=== PATIENT | female | born 2000 | race Caucasian/White ===

== ENCOUNTER 2022-06-23 03:51 | Emergency (ER) | payer OTHER ==
[2022-06-23] MEDS ORDERED: KETOROLAC 30 MG/ML VIAL IVP ONE (06:00)
[2022-06-23] MEDS ORDERED: PROMETHAZINE INJ 25 MG/ML (PHENERGAN) AMP IVP ONE (06:00)
[2022-06-23] MEDS ORDERED: LACTATED RINGERS 1,000 ML IV ONE (06:00)
[2022-06-23] MEDS ORDERED: ORPHENADRINE 60 MG/2 ML (NORFLEX) AMP (ED ONLY) IV ONE (06:00)
[2022-06-23 06:22] LABS: BASOPHILS % (AUTO) 1 % (0-10); EOSINOPHILS % (AUTO) 1 % (0-10); HEMATOCRIT 41 % (35-52); HEMOGLOBIN 13.7 g/dL (11.5-16.0); LYMPHOCYTES # (AUTO) 1.4 10^3/uL (1.0-4.0); LYMPHOCYTES % (AUTO) 32 % (12-44); MEAN CORPUSCULAR HEMOGLOBIN 30 pg (25-34); MEAN CORPUSCULAR HGB CONC 34 g/dL (32-36); MEAN CORPUSCULAR VOLUME 89 fL (80-99); MEAN PLATELET VOLUME 9.9 fL (9.0-12.2); MONOCYTES # (AUTO) 0.7 10^3/uL (0.0-1.0); MONOCYTES % (AUTO) 15 % (0-12); NEUTROPHILS # (AUTO) 2.3 10^3/uL (1.8-7.8); NEUTROPHILS % (AUTO) 51 % (42-75); PLATELET COUNT 237 10^3/uL (130-400); WHITE BLOOD COUNT 4.4 10^3/uL (4.3-11.0)
[2022-06-23 06:33] LABS: POTASSIUM 4.1 MMOL/L (3.6-5.0)
[2022-06-23 06:35] LABS: CALCIUM 9.3 MG/DL (8.5-10.1)
[2022-06-23 06:39] LABS: CREATININE SERUM 0.77 MG/DL (0.60-1.30)
[2022-06-23 06:41] LABS: MAGNESIUM 1.7 MG/DL (1.6-2.4)
[2022-06-23] MEDS ORDERED: methylPREDNISolone 125 MG (Solu-MEDROL) VIAL IVP ONE (07:00)
[2022-06-23 07:02] LABS: ERYTHROCYTE SEDIMENTATION RATE 8 MM/HR (0-20)
[2022-06-23] MEDS ORDERED: CYCL10TA25 PO (07:02)
--- NOTE | 2022-06-23 07:03 | ED Headache ---
General Chief Complaint: Head/Cervical Problems Stated Complaint: ROSARIO Nursing Triage Note: pt presents with c/o h/a x4days. reports taking 600mg ibuprofen for the pain without relief. reports last dose was 0300. denies n/v/d. reports hitting her head one month ago, no other injuries. Source: patient Exam Limitations: no limitations History of Present Illness Date Seen by Provider: Jun 23, 2022 Time Seen by Provider: 05:45 Initial Comments This 21-year-old young lady presents to the emergency room with headache for the past 4 days. She denies history of migraine headaches. She reports head injury about a month ago for which she was evaluated with a CT scan in [place]. She took COVID-19 test x2 that were negative. She last took ibuprofen around 3 AM. Her headache was severe when she woke at that time this morning. She was nauseated yesterday but denies any nausea now. She has had some diarrhea. She denies fever. She has not had any tick bites that she is aware of. She took one half hydroxyzine and some NyQuil 2 nights ago and felt confused and dizzy after that. She had COVID tests on Monday and Monday at the hospital and a third test from urgent care is currently pending. The first 2 tests were negative. She has had some hot flashes. Her primary care provider is in [facility]. She is on oral control. Pain starts in her neck and radiates up over her scalp. Allergies and Home Medications Allergies Coded Allergies: mupirocin (Verified Allergy, Unknown, 06/23/22) Patient Home Medication List Home Medication List Reviewed: Yes Cyclobenzaprine HCl (Cyclobenzaprine HCl) 10 Mg Tablet, 10 MG PO Q8H PRN for SPASMS Prescribed by: ULI KIM on 06/23/22 0702 Review of Systems Review of Systems Constitutional: no symptoms reported Eyes: No Symptoms Reported Ears, Nose, Mouth, Throat: no symptoms reported Respiratory: no symptoms reported Cardiovascular: no symptoms reported Gastrointestinal: see HPI Genitourinary: no symptoms reported : No Musculoskeletal: no symptoms reported Skin: no symptoms reported Psychiatric/Neurological: See HPI Past Ndcsegk-Tgwegy-Yacynp Hx Patient Social History Tobacco Use?: No Use of E-Cig and/or Vaping dev: Yes E-Cig or Vaping type used: Nicotine Substance use?: No Alcohol Use?: Yes Alcohol Frequency: Once in a while Pt feels they are or have been: No Immunizations Up To Date Influenza Vaccine Up-to-Date: No; Not Current First/Initial COVID19 Vaccinat: unknown date Second COVID19 Vaccination Jaziel: unknown date 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 oz. kg; BMI Method: General Appearance: WD/WN, mild distress HEENT: PERRL/EOMI, normal ENT inspection, TMs normal, pharynx normal Neck: normal inspection Cardiovascular: regular rate, rhythm, no edema, no murmur Respiratory: lungs clear, normal breath sounds, no respiratory distress Extremities: normal inspection, no pedal edema Psychiatric: alert, oriented x 3 Crainal Nerves: normal hearing, normal speech, PERRL Motor/Sensory: no motor deficit, no sensory deficit Skin: normal color, warm/dry Progress/Results/Core Measures Results/Orders Lab Results Laboratory Tests Test 06/23/22 06:08 Range/Units White Blood Count 4.4 4.3-11.0 10^3/uL Red Blood Count 4.55 3.80-5.11 10^6/uL Hemoglobin 13.7 11.5-16.0 g/dL Hematocrit 41 35-52 % Mean Corpuscular Volume 89 80-99 fL Mean Corpuscular Hemoglobin 30 25-34 pg Mean Corpuscular Hemoglobin Concent 34 32-36 g/dL Red Cell Distribution Width 12.3 10.0-14.5 % Platelet Count 237 130-400 10^3/uL Mean Platelet Volume 9.9 9.0-12.2 fL Immature Granulocyte % (Auto) 0 % Neutrophils (%) (Auto) 51 42-75 % Lymphocytes (%) (Auto) 32 12-44 % Monocytes (%) (Auto) 15 H 0-12 % Eosinophils (%) (Auto) 1 0-10 % Basophils (%) (Auto) 1 0-10 % Neutrophils # (Auto) 2.3 1.8-7.8 10^3/uL Lymphocytes # (Auto) 1.4 1.0-4.0 10^3/uL Monocytes # (Auto) 0.7 0.0-1.0 10^3/uL Eosinophils # (Auto) 0.0 0.0-0.3 10^3/uL Basophils # (Auto) 0.0 0.0-0.1 10^3/uL Immature Granulocyte # (Auto) 0.0 0.0-0.1 10^3/uL Erythrocyte Sedimentation Rate 8 0-20 MM/HR Sodium Level 139 135-145 MMOL/L Potassium Level 4.1 3.6-5.0 MMOL/L Chloride Level 109 H 98-107 MMOL/L Carbon Dioxide Level 21 21-32 MMOL/L Anion Gap 9 5-14 MMOL/L Blood Urea Nitrogen 7 7-18 MG/DL Creatinine 0.77 0.60-1.30 MG/DL Estimat Glomerular Filtration Rate 114 BUN/Creatinine Ratio 9 Glucose Level 88 70-105 MG/DL Calcium Level 9.3 8.5-10.1 MG/DL Magnesium Level 1.7 1.6-2.4 MG/DL C-Reactive Protein High Sensitivity 0.55 H 0.00-0.50 MG/DL Thyroid Stimulating Hormone (TSH) 2.12 0.35-4.94 UIU/ML Serum Test, Qualitative NEGATIVE NEGATIVE My Orders Orders - ULI LOUIS MD Basic Metabolic Panel (06/23/22 05:57) Cbc With Automated Diff (06/23/22 05:57) Hs C Reactive Protein (06/23/22 05:57) Erythrocyte Sedimentation Rate (06/23/22 05:57) Magnesium (06/23/22 05:57) Thyroid Stimulating Hormone (06/23/22 05:57) Ed Iv/Invasive Line Start (06/23/22 05:57) Lactated Ringers (Lr 1000 Ml Iv Solution (06/23/22 06:00) Ketorolac Injection (Toradol Injection) (06/23/22 06:00) Promethazine Injection (Phenergan Injec (06/23/22 06:00) Orphenadrine Inj (Ed Only) (Norflex Inje (06/23/22 06:00) Hcg,Qualitative Serum (06/23/22 05:57) Methylprednisolone Sod Succ (Solu-Medrol (06/23/22 07:00) Medications Given in ED Vital Signs/I&O 06/23/22 06/23/22 04:08 07:08 Temp 37.1 Pulse 109 71 Resp 20 16 B/P (MAP) 120/83 (95) 111/71 Pulse Ox 98 100 O2 Delivery Room Air Room Air Blood Pressure Mean: 95 Progress Progress Note : Progress Note Patient was treated with Toradol, Norflex, and Phenergan. She was hydrated with a liter of IV fluids. This improved her symptoms significantly. She was add itionally treated with a dose of Solu-Medrol to prevent rebound headache. See discharge instructions for further discussion. Labs were obtained and were unremarkable. There was no evidence of infectious etiology. Departure Impression Primary Impression: Acute headache Qualified Codes: R51.9 - Headache, unspecified Additional Impressions: Nausea Diarrhea Qualified Codes: R19.7 - Diarrhea, unspecified Disposition: 01 HOME, SELF-CARE Condition: Improved Departure-Patient Inst. Decision time for Depature: 07:00 Referrals: NO,LOCAL PHYSICIAN (PCP/Family) Primary Care Physician Patient Instructions: Headache, Adult ED Add. Discharge Instructions: Drink plenty of clear liquids to stay well-hydrated. Try to rest in a quiet, calm, dark environment for the rest of the day. For headache you may take ibuprofen up to 600 mg every 6 hours and/or Tylenol (acetaminophen) up to 1000 mg every 6 hours as needed. Use the Zofran (ondansetron) you are previously prescribed as directed for nausea or vomiting. Follow-up with your primary care provider soon as possible to discuss further treatment and prevention of migraines. You may use cyclobenzaprine muscle relaxer for your neck tension. Please be advised this may cause drowsiness so do not drive, operate machinery, or make important decisions on this medication. Return to the ER if you have worsening symptoms despite following these instructions. All discharge instructions reviewed with patient and/or family. Voiced understanding. Scripts Cyclobenzaprine HCl (Cyclobenzaprine HCl) 10 Mg Tablet 10 MG PO Q8H PRN for SPASMS, #10 TAB 0 Refills Prov: ULI LOUSI MD 06/23/22 Work/School Note: Work Release Form Date Seen in the Emergency Department: Jun 23, 2022 Return to Work: Jun 24, 2022 Restrictions: Return-No Vomiting(24hrs) ULI LOUIS MD Jun 23, 2022 07:03
[2022-06-23 07:08] VITALS: BP 111/71
== END 2022-06-23 07:08 | disposition home or self-care (01) ==
LOC: ER 03:58
DX: R51.9 Headache, unspecified (principal); R19.7 Diarrhea, unspecified; R11.0 Nausea; F17.290 Nicotine dependence, other tobacco product, uncomplicated
CPT/HCPCS: 36415; 80048; 83735; 84443; 84703; 85025; 85652; 86141